=== PATIENT | female | born 1985 | race Caucasian/White ===

== ENCOUNTER 2024-08-30 16:52 | Emergency (ER) | payer MEDICARE, MEDICAID ==
[~2024-08-30] VITALS: Ht 154.9 cm; Wt 120.7 kg
[~2024-08-30 16:52] MED LIST: 'PARAFON FORTE500 M1 PO; ABILIFY10 MG PO; ACCUNEB 0.0.63 MG/3 NEB; ALBUTEROL0.09 MG/A2 IH; ALBUTEROL0.09 MG/A2 INH; ALBUTEROL0.63 MG/3 NEB; ALLERGY EYE DRO10 ML OP; ANAPROX DS550 MG PO; ASPIRIN81 M1 PO; BACTRIM 400 MG-1 TAB PO; BACTRIM DS 8001 TA1 PO; BACTRIM PED152.22 ML PO; BENADRYL25 M2 PO; BENADRYL25 MG PO; BUTALBITAL-ASPI1 CAP PO; BYETTA10 MCG/0.1 SC; CALCIUM600 M2 PO; CEFDINIR250 MG/5 M PO; CEFTIN500 M1 PO; CEFZIL 250250 MG/5 M PO; CELEXA20 MG PO; CELEXA40 MG PO; CILOXAN 5 ML5 M1 OP; CILOXAN 5 ML5 M1 OT; CIPRO500 MG PO; CIPROFLOXACIN500 MG PO; CLARITIN-D 12 H1 TAB PO; CLARITIN10 M1 PO; CLARITIN10 MG PO; CLARITIN5 MG/5 ML PO; CLEOCIN150 MG PO; CLINDAMYCIN150 MG PO; COMBIVENT1 ARO IH; DDAVP0.2 MG PO; DELTASONE20 M1 PO; DESMOPRESSIN0.2 MG PO; DIABETA2.5 MG PO; DIABETA5 MG PO; DITROPAN XL5 MG PO; DOXYCYCLINE100 M3 PO; DOXYCYCLINE100 M4 PO; DULCOLAX10 M1 RC; FIORICET 325 MG1 TAB PO; FLAGYL500 MG PO; FLEET ADULT ENEM1 EA R; FOLBIC 2 MG-2.51 TAB PO; GLYBURIDE PO; GLYBURIDE5 MG PO; HUMALOG MI100 UNIT/1 SC; HUMALOG100 U/ML SC; HUMALOG100 UNIT/1 SC; HUMALOG100 UNIT/1 SQ; HUMULIN 70/30 703 M1 SC; HUMULIN R100 U/ML SC; INVOKANA100 M1 PO; K-LOR 20MEQ20 ME1 PO; KEFLEX500 M1 PO; KEFLEX500 MG PO; KLONOPIN1 M1 PO; KLONOPIN1 MG PO; LANTUS100 U/ML SC; LASIX20 MG PO; LASIX40 MG PO; LEVAQUIN750 M1 PO; LEVOFLOXACIN500 MG PO; LISINOPRIL10 MG PO; LOPID600 M1 PO; LOPID600 MG PO; LOTRISONE 0.05%15 GM PO; MACROBID100 M1 PO; MAGNESIUM27 MG PO; METFORMIN500 MG PO; MILK OF MA400 MG/5 M PO; MIRALAX POWDER17 G1 PO; MOTRIN800 MG PO; MULTI VITAMINS1 TAB PO; Motrin,Rufen400 MG PO; Motrin,Rufen800 MG PO; NEURONTIN800 MG PO; NOVOLIN 701 UNIT/0.0; NOVOLIN R100 U/ML SC; NOVOLOG 70/30 M10 ML SC; NOVOLOG 701 UNIT/0.0 SC; NOVOLOG FLEX100 U/ML SC; NOVOLOG MIX 70/33 ML SC; NOVOLOG10 ML IV; OXYGEN NAS; PHENERGAN25 M1 PO; PHENERGAN25 M3 PO; POTASSIUM CHLO10 ME4 PO; PREDNISONE10 MG PO; PREDNISONE20 M1 PO; PRILOSEC20 M2 PO; PRILOSEC40 M1 PO; PRILOSEC40 MG PO; PROAIR HFA8.5 GM IH; PROVENTIL0.09 MG/AC IH; Phenergan25 MG PO; REQUIP0.5 MG PO; RIOMET500 MG/5 M PO; RISPERDAL0.25 MG PO; ROBITUSSIN AC 10 MG/ PO; SEPTRA 200 MG/100 ML PO; SEPTRA DS 800 M1 TAB PO; SINGULAIR10 MG PO; SYMBICORT1 AE1 INH; TAB-A-VITE1 TA1 PO; TOPAMAX25 MG PO; TOPAMAX50 MG PO; TYLENOL W/CODEI1 TA2 PO; TYLENOL325 M1 PO; ULTRAM50 MG PO; VENTOLIN H0.09 MG/AC INH; VIBRAMYCIN100 MG PO; VICODIN 500 MG-1 TAB PO; VIT E PO; VITAMIN B 12 PO; VITAMIN D50000 I3 PO; ZANTAC150 MG PO; ZEASORB T; ZETIA10 MG PO; ZITHROMAX250 MG PO; ZOFRAN ODT4 MG SL; ZYRTEC1 MG/ML PO; ZYRTEC10 MG PO
[2024-08-30 18:22] LABS: BASO % 0.2 % (0.0-1.0); EOS # 0.1 10*3/uL (0.0-0.4); EOS % 1.6 % (1.0-4.0); HEMATOCRIT 47.5 % (37.0-47.0); LYMPH # 2.5 10*3/uL (1.3-4.4); LYMPH % 29.1 % (27.0-41.0); MEAN CELL VOLUME 85.3 fl (81.0-99.0); MEAN CORPUSCULAR HGB 27.8 pg (27.0-31.0); MEAN CORPUSCULAR HGB CONC 32.6 g/dl (33.0-37.0); MEAN PLATELET VOLUME 9.2 fl (9.6-12.3); MONO # 0.5 10*3/uL (0.1-1.0); MONO % 6.3 % (3.0-9.0); NEUT # 5.4 10*3/uL (2.3-7.9); NEUT % 62.6 % (47.0-73.0); PLATELET COUNT AUTOMATED 250 10*3/uL (130-400); RED BLOOD COUNT 5.57 10*6/uL (4.10-5.10); RED CELL DISTRI WIDTH 14.8 % (0-14.5); WHITE BLOOD COUNT 8.6 10*3/uL (4.8-10.8)
[2024-08-30 18:39] LABS: B-hCG (QUALITATIVE) NEGATIVE (NEGATIVE); BUN 13 mg/dl (9-23); CHLORIDE 110 mmol/L (98-107); ETHYL ALCOHOL < 3.0 mg/dl (<3); POTASSIUM 4.3 mmol/L (3.4-5.1)
[2024-08-30 19:27] LABS: BILIRUBIN Negative (Negative); BLOOD Negative (Negative); CLARITY Cloudy (Clear); COLOR Yellow (Yellow); GLUCOSE 3+ (Negative); KETONE Negative (Negative); LEUKO ESTERASE Negative (Negative); NITRITE Negative (Negative); PH 7.5 (4.5-8.0); SPECIFIC GRAVITY 1.015 (1.001-1.030); UROBILINOGEN 0.2 E.U./dl (0.0-1.0)
[2024-08-30 19:35] LABS: URINE AMPHETAMINES Negative (1000ng/ml); URINE BARBITURATES Negative (200ng/ml); URINE BENZODIAZEPINES Negative (200ng/ml); URINE CANNABINOIDS (THC) Negative (50ng/ml); URINE COCAINE Negative (300ng/ml); URINE METHADONE Negative (300ng/ml); URINE OPIATES Negative (300ng/ml); URINE PHENCYCLIDINE Negative (25ng/ml)
[2024-08-30 19:41] LABS: BACTERIA 2+; WBC 0-2 wbc/hpf (0-5)
[2024-08-30] MEDS ORDERED: ATORVASTATIN CA40 M1 PO (20:15)
[2024-08-30] MEDS ORDERED: BUSPIRONE HCL10 MG PO (20:21)
[2024-08-30] MEDS ORDERED: CALCIUM CITRAT1 EA19 PO (20:21)
[2024-08-30] MEDS ORDERED: CARBOXYMETHYLCE15 ML OP (20:24)
[2024-08-30] MEDS ORDERED: DOCUSATE SOD100 MG PO (20:25)
[2024-08-30] MEDS ORDERED: CETIRIZINE HYDR10 MG PO (20:25)
[2024-08-30] MEDS ORDERED: ARNUITY ELLIPT50 MCG INH (20:26)
[2024-08-30] MEDS ORDERED: HYDROXYZINE HCL25 MG PO (20:27)
[2024-08-30] MEDS ORDERED: JARDIANCE25 MG PO (20:27)
[2024-08-30] MEDS ORDERED: GEMTESA75 MG PO (20:27)
[2024-08-30] MEDS ORDERED: METFORMIN HCL500 M2 PO (20:31)
[2024-08-30] MEDS ORDERED: NAPROSYN500 MG PO (20:32)
[2024-08-30] MEDS ORDERED: OZEMPIC1 MG/0.71 SQ (20:32)
[2024-08-30] MEDS ORDERED: MIRALAX17 GM PO (20:34)
[2024-08-30] MEDS ORDERED: TOPAMAX200 MG PO (20:36)
[2024-08-30] MEDS ORDERED: VRAYLAR1.5 MG PO (20:36)
[2024-08-30] MEDS ORDERED: TRINTELLIX20 MG PO (20:36)
== END 2024-08-30 21:06 ==
LOC: ED 16:52
PROVIDERS: Physician Assistant Medical
DX: F43.21 Adjustment disorder with depressed mood (principal); F31.9 Bipolar disorder, unspecified; J44.9 Chronic obstructive pulmonary disease, unspecified; I10 Essential (primary) hypertension; E78.5 Hyperlipidemia, unspecified; E11.9 Type 2 diabetes mellitus without complications; F41.9 Anxiety disorder, unspecified; K21.9 Gastro-esophageal reflux disease without esophagitis; Z88.0 Allergy status to penicillin; Z91.048 Other nonmedicinal substance allergy status; Z88.1 Allergy status to other antibiotic agents; Z88.8 Allergy status to other drugs, medicaments and biological substances; Z98.890 Other specified postprocedural states; Z90.49 Acquired absence of other specified parts of digestive tract